=== PATIENT | male | born 1940 | race Two or more races ===

== ENCOUNTER 2018-01-20 08:10 | Outpatient (CLI) | payer OTHER ==
[~2018-01-20 08:10] MED LIST: CIPRO500 MG PO; FLAGYL500MG PO; INTESTINEX1 CAP PO; ZANTAC150 MG PO
== END 2018-01-20 10:00 | disposition home or self-care (01) ==
LOC: NUCLEAR 08:10
DX: R07.89 Other chest pain (principal); E11.9 Type 2 diabetes mellitus without complications; I25.10 Atherosclerotic heart disease of native coronary artery without angina pectoris
CPT/HCPCS: 78452; 93017; A9500; J0153

== ENCOUNTER 2019-06-10 09:30 | Emergency (ER) | payer OTHER ==
[~2019-06-10] VITALS: Ht 152.4 cm; Wt 59.9 kg
[2019-06-10] MEDS ORDERED: TENORMIN25 MG (09:40)
[2019-06-10] MEDS ORDERED: GABAPENTIN100 MG (09:40)
[2019-06-10] MEDS ORDERED: ATORVASTATIN CA40 MG (09:40)
[2019-06-10] MEDS ORDERED: PLAVIX75 MG (09:40)
[2019-06-10] MEDS ORDERED: ASPIR 8181 MG (09:41)
[2019-06-10] MEDS ORDERED: NITROGLYCERIN0.4 MG (09:41)
[2019-06-10] MEDS ORDERED: COZAAR50 MG (09:41)
== END 2019-06-10 13:06 | disposition home or self-care (01) ==
LOC: ER 09:30
DX: R44.2 Other hallucinations (principal); R00.1 Bradycardia, unspecified; I10 Essential (primary) hypertension